=== PATIENT | female | born 2000 | race Caucasian/White ===

== ENCOUNTER 2025-06-29 01:55 | Emergency (ER) | payer SELFPAY ==
[2025-06-29] MEDS ORDERED: NA CHLORIDE 0.9% 1,000 ML ONE (02:15)
[2025-06-29] MEDS ORDERED: ONDANSETRON 4 MG/2 ML VIAL ONE (02:15)
[2025-06-29 03:00] LABS: Absolute Lymphocytes (CBC) 4.5 K/uL (0.7-4.9); Hematocrit 41.2 % (36.0-45.0); Hemoglobin 14.2 g/dL (12.0-15.0); MCH 28.4 pg (27.0-35.0); MCHC 34.4 g/dL (32.0-36.0); MCV 82.6 fL (80-100); MPV 8.4 fL (7.6-11.3); Nucleated RBC Absolute Count 0.0 (0-0); Nucleated Red Blood Cells % 0.0 % (0-0); RBC Red Blood Cell Count 4.99 M/uL (3.86-4.86); White Blood Count 12.80 thou/uL (4.3-10.9)
[2025-06-29 03:05] LABS: ALT/SGPT 41.0 U/L (13-56); AST/SGOT 18.0 U/L (15-37); Albumin 3.7 g/dL (3.4-5.0); Albumin/Globulin Ratio 1.1 (1.1-1.8); Alkaline Phosphatase 82.0 U/L (45-117); Anion Gap 11.4 mEq/L (5.0-15.0); BUN Blood Urea Nitrogen 10.0 mg/dL (7-18); Globulin 3.5 g/dL (2.3-3.5); Glucose Level 97.0 mg/dL (74-106); Lipase 28.0 U/L (13-75); Magnesium 2.1 mg/dL (1.6-2.4); Potassium 3.4 mEq/L (3.5-5.1)
[2025-06-29] MEDS ORDERED: KETOROLAC 30 MG/ML INJ ONE ×2 (03:14→05:27)
[2025-06-29 03:59] LABS: Sqamous Epithelial <5 /HPF (None Seen); Urine Culture Reflex Order NOT NEEDED; Urine Microscopic Reflex YN ORDER UMIC
--- NOTE | 2025-06-29 05:24 | RAD REPORT ---
EXAM DESCRIPTION: Abdomen Pelvis W Contrast CLINICAL HISTORY: ABD PAIN COMPARISON: None TECHNIQUE: Contiguous axial sections of the abdomen and pelvis were obtained with intravenous contrast. This exa m was performed according to our departmental dose-optimization program, which includes automated exposure control, adjustment of the mA and/or kV according to patient size and/or use of iterative re construction technique. FINDINGS: Lower Chest: The imaged lung bases are clear. No pleural or pericardial effusion. Organs: The liver, spleen, gallbladder, pancreas, and adrenal glands are normal. The kidneys are inta ct. GI/Bowel: There are no findings of small bowel obstruction. No acute bowel wall inflammatory changes. The appendix is normal. Pelvis: The bladder is normal. The rectum is normal. Trace amount of the pelvic free fluid. No pelvic lymphadenopathy. Peritoneum/Retroperitoneum: No intraperitoneal free air. No intraperitoneal free fluid. No mesenteric or retroperitoneal lymphadenopathy. Bones/Soft Tissues: There are no suspicious-appearing lytic or blastic osseous lesions. IMPRESSION: No acute intra-abdominal or pelvic abnormality. RECOMMENDATIONS: Electronically signed by: Eleazar Murdock MD 06/29/2025 05:13 AM [facility] Due to temporary technical issues with the PACS/Semetric reporting system, reports are being melissa d by the in-house radiologist without review as a courtesy to ensure prompt reporting the interpreting radiologist is fully responsible for the content of the report. Transcribed Date/Time: 06/29/2025 5:24 AM
--- NOTE | 2025-06-29 05:27 | ER ---
Nurse's Notes [facility] Name: Zeny Perkins Age: 24 yrs Sex: Female : 2000 Arrival Date: 06/29/2025 Time: 01:55 Bed 6 Private MD: Diagnosis: Abdominal pain, unspecified Presentation: 06/29 02:01 Chief complaint: Patient states: left sided abdominal pain with N/V beginning last lg3 night. Coronavirus screen: Client denies travel out of the [place] in the last 14 days. At this time, the client does not indicate any symptoms associated with coronavirus-19. Ebola Screen: No symptoms or risks identified at this time. Initial Sepsis Screen: Does the patient meet any 2 criteria? No. Patient's initial sepsis screen is negative. Does the patient have a suspected source of infection? No. Patient's initial sepsis screen is negative. Risk Assessment: Do you want to hurt yourself or someone else? Patient reports no desire to harm self or others. Onset of symptoms was June 28, 2025. Care prior to arrival: Medication(s) given: zofran 4 mg. 02:01 Method Of Arrival: EMS: [facility] lg3 02:01 Acuity: BÁRBARA 3 lg3 Triage Assessment: 02:03 General: Appears in no apparent distress. uncomfortable, Behavior is calm, cooperative. lg3 Pain: Complains of pain in right upper quadrant and right lower quadrant. EENT: No deficits noted. No signs and/or symptoms were reported regarding the EENT system. Neuro: No deficits noted. Foster Agitation-Sedation Scale (RASS): 0 - Alert and Calm Level of Consciousness is awake, alert, obeys commands, Oriented to person, place, time, situation. Cardiovascular: No deficits noted. Denies chest pain, shortness of breath, Capillary refill < 3 seconds Clubbing of nail beds is absent JVD is absent Patient's skin is warm and dry. Respiratory: No deficits noted. Airway is patent Respiratory effort is even, unlabored, Respiratory pattern is regular, symmetrical. GI: Abdomen is round non-distended, Bowel sounds present X 4 quads. Reports lower abdominal pain, upper abdominal pain, nausea, vomiting. : No signs and/or symptoms were reported regarding the genitourinary system. Derm: No deficits noted. No signs and/or symptoms reported regarding the dermatologic system. Skin is intact, is healthy with good turgor, Skin is dry, Skin is normal, Skin temperature is warm. Musculoskeletal: No deficits noted. No signs and/or symptoms reported regarding the musculoskeletal system. Circulation, motion, and sensation intact. Range of motion: intact in all extremities. 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 - Infectious Disease History:: Denies. - Social history:: Smoking status: Reported history of juuling and/or vaping. Patient/guardian denies using alcohol, street drugs. Screenin:08 [facility] ED Fall Risk Assessment (Adult) History of falling in the last 3 months, lg3 including since admission No falls in past 3 months (0 pts) Confusion or Disorientation No (0 pts) Intoxicated or Sedated No (0 pts) Impaired Gait No (0 pts) Mobility Assist Device Used No (0 pt) Altered Elimination No (0 pt) Score/Fall Risk Level 0 - 2 = Low Risk Oriented to surroundings, Maintained a safe environment, Educated pt \T\ family on fall prevention, incl call for assistance when getting out of bed, Assessed \T\ reinforced patient's understanding of fall precautions. Abuse screen: Denies threats or abuse. Denies injuries from another. Nutritional screening: No deficits noted. Tuberculosis screening: No symptoms or risk factors identified. Assessment: 02:08 General: see triage assessment. GI: Abd is soft and non tender X 4 quads. lg3 03:10 Reassessment: Patient appears in no apparent distress at this time. No changes from lg3 previously documented assessment. Patient and/or family updated on plan of care and expected duration. Pain level reassessed. Patient is alert, oriented x 3, equal unlabored respirations, skin warm/dry/pink. 04:57 Reassessment: Patient appears in no apparent distress at this time. No changes from lg3 previously documented assessment. Patient and/or family updated on plan of care and expected duration. Pain level reassessed. Patient is alert, oriented x 3, equal unlabored respirations, skin warm/dry/pink. 05:38 Reassessment: Patient appears in no apparent distress at this time. No changes from lg3 previously documented assessment. Patient and/or family updated on plan of care and expected duration. Pain level reassessed. Patient is alert, oriented x 3, equal unlabored respirations, skin warm/dry/pink. Patient states feeling better. Patient states symptoms have improved. Vital Signs: 02:01 BP 127 / 86; Pulse 74; Resp 17 S; Temp 98.1(O); Pulse Ox 100% on R/A; Weight 99.79 kg lg3 (R); Height 5 ft. 8 in. (R); Pain 5/10; 03:10 BP 125 / 89; Pulse 71; Resp 16 S; Pulse Ox 100% on R/A; lg3 04:56 BP 115 / 69; Pulse 66; Resp 17 S; Pulse Ox 100% on R/A; lg3 05:39 BP 117 / 72; Pulse 69; Resp 16 S; Pulse Ox 100% on R/A; lg3 02:01 Body Mass Index 33.45 (99.79 kg, 172.72 cm) lg3 02:01 Pain Scale: Adult lg3 ED Course: 01:59 Patient arrived in ED. rv1 02:00 Patricia Cunningham RN is Primary Nurse. lg3 02:00 Michael Wright PA-C is PHCP. cp 02:00 Michael Malloy MD is Attending Physician. cp 02:03 Triage completed. lg3 02:03 Arm band placed on right wrist. lg3 02:08 Patient has correct armband on for positive identification. Placed in gown. Bed in low lg3 position. Call light in reach. Side rails up X 1. Client placed on continuous cardiac and pulse oximetry monitoring. NIBP monitoring applied. Door closed. Noise minimized. Warm blanket given. Pillow given. 02:08 Initial lab(s) drawn, by ED staff, sent to lab. Maintain EMS IV. Dressing intact. Good lg3 blood return noted. Site clean \T\ dry. Gauge \T\ site: 22 LAC. Flushed with 10 mL NS. 02:23 Inserted saline lock: 20 gauge in right antecubital area, using aseptic technique. lg3 03:09 Magnesium Sent. lg3 03:36 CT Abd/Pelvis - IV Contrast Only In Process Unspecified. EDMS 05:25 Dione Colindres MD is Referral Physician. cp 05:39 No provider procedures requiring assistance completed. IV discontinued, intact, lg3 bleeding controlled, No redness/swelling at site. Pressure dressing applied. Administered Medications: 02:15 CANCELLED (Physician Discretion): morphineor iv 4 mg IVP once over 4 mins cp 02:23 Drug: Ondansetron IVP 4 mg IVP once; over 2 minutes Route: IVP; Site: left antecubital; lg3 03:09 Follow up: Response: No adverse reaction; Marked relief of symptoms lg3 02:23 Drug: NS 0.9% IV 1000 ml IV at 1 bolus Per protocol; to be given as a bolus over 60 lg3 minutes Route: IV; Rate: 1 bolus; Site: left antecubital; 03:09 Follow up: Response: No adverse reaction; IV Status: Completed infusion; IV Intake: lg3 1000ml 03:17 Drug: Ketorolac IVP 15 mg IVP once Route: IVP; Site: left antecubital; lg3 05:38 Follow up: Response: No adverse reaction lg3 05:38 Drug: Ketorolac IVP 15 mg IVP once Route: IVP; Site: left antecubital; lg3 05:40 Follow up: Response: No adverse reaction; Medication administered at discharge. lg3 Medication: 02:08 VIS not applicable for this client. lg3 Intake: 03:09 IV: 1000ml; Total: 1000ml. lg3 Outcome: 05:26 Discharge ordered by . cp 05:39 Discharged to home ambulatory, with family, lg3 05:39 Condition: stable 05:39 Discharge instructions given to patient, Instructed on discharge instructions, follow up and referral plans. medication usage, Demonstrated understanding of instructions, follow-up care, medications, Prescriptions given X 2, 05:47 Patient left the ED. lg3 Signatures: Dispatcher [facility] Michael Wright PA-C PA-C Patricia Macedo, RN RN lg3 Trevino, Maryjane rv1
--- NOTE | 2025-06-29 05:27 | EDPHYS ---
Physician Documentation [facility] Name: Zeny Perkins Age: 24 yrs Sex: Female : 2000 Arrival Date: 06/29/2025 Time: 01:55 Bed 6 Private MD: ED Physician Michael Malloy HPI: 06/29 02:07 This 24 yrs old Female presents to ER via EMS with complaints of Abdominal Pain, cp Nausea/Vomiting. 02:07 The patient presents with abdominal pain in the upper abdomen, mid abdomen. Onset: The cp symptoms/episode began/occurred today. The symptoms radiate to left back. Associated signs and symptoms: Pertinent positives: nausea, Pertinent negatives: diarrhea, dysuria, fever, vaginal spotting. 02:10 Patient reports vaginal spotting/bleeding after intercourse. 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 - Infectious Disease History:: Denies. - Social history:: Smoking status: Reported history of juuling and/or vaping. Patient/guardian denies using alcohol, street drugs. ROS: 02:10 Constitutional: Negative for body aches, chills, fever, poor PO intake, cp 02:10 Respiratory: Negative for cough, shortness of breath, wheezing, cp 02:10 Abdomen/GI: Positive for abdominal pain, nausea, of the mid and upper abdomen, Negative for vomiting, diarrhea, constipation, 02:10 Eyes: Negative for injury, pain, redness, and discharge, cp 02:10 ENT: Negative for drainage from ear(s), ear pain, sore throat, difficulty swallowing, cp difficulty handling secretions, 02:10 Cardiovascular: Negative for chest pain, palpitations, 02:10 Neuro: Negative for altered mental status, headache, syncope, weakness, 02:10 All other systems are negative, Exam: 02:15 Constitutional: The patient appears in no acute distress, alert, awake, non-toxic, well cp developed, well nourished, uncomfortable, 02:15 Head/Face: Normocephalic, atraumatic. cp 02:15 Eyes: Periorbital structures: appear normal, Conjunctiva: normal, no exudate, no injection, Sclera: no appreciated abnormality, Lids and lashes: appear normal, bilaterally, 02:15 ENT: External ear(s): are unremarkable, Nose: is normal, Mouth: Lips: moist, Oral mucosa: moist, Posterior pharynx: Airway: no evidence of obstruction, patent, 02:15 Neck: ROM/movement: is normal, is supple, without pain, no range of motions limitations, 02:15 Chest/axilla: Inspection: normal, 02:15 Cardiovascular: Rate: normal, Rhythm: regular, 02:15 Respiratory: the patient does not display signs of respiratory distress, Respirations: normal, no use of accessory muscles, no retractions, labored breathing, is not present, Breath sounds: are clear throughout, decreased breath sounds, are not appreciated, stridor, is not appreciated, wheezing: is not appreciated, 02:15 Abdomen/GI: Inspection: abdomen appears normal, Bowel sounds: active, all quadrants, cp Palpation: soft, in all quadrants, moderate abdominal tenderness, in the right upper quadrant and left upper quadrant, involuntary guarding, is not appreciated, 02:15 Back: CVA tenderness, is absent, cp 05:25 : Pelvic Exam: The exam is refused by the patient/guardian. The risks and cp consequences are understood by the patient, Sexual behavior: the patient is sexually active, and reports a single partner, Vital Signs: 02:01 BP 127 / 86; Pulse 74; Resp 17 S; Temp 98.1(O); Pulse Ox 100% on R/A; Weight 99.79 kg lg3 (R); Height 5 ft. 8 in. (R); Pain 5/10; 03:10 BP 125 / 89; Pulse 71; Resp 16 S; Pulse Ox 100% on R/A; lg3 04:56 BP 115 / 69; Pulse 66; Resp 17 S; Pulse Ox 100% on R/A; lg3 05:39 BP 117 / 72; Pulse 69; Resp 16 S; Pulse Ox 100% on R/A; lg3 02:01 Body Mass Index 33.45 (99.79 kg, 172.72 cm) lg3 02:01 Pain Scale: Adult lg3 MDM: 02:59 Medical Screening Exam initiated geovanny 05:24 Data reviewed: vital signs, nurses notes, lab test result(s), radiologic studies, CT cp scan, and as a result, I will discharge patient. 06/29 02:05 Order name: CBC with Diff; Complete Time: 03:05 cp 06/29 03:05 Interpretation: Normal except: WBC 12.80; RBC 4.99. cp 06/29 02:05 Order name: CMP; Complete Time: 03:53 cp 06/29 03:53 Interpretation: Normal except: K 3.4; CL 108. cp 06/29 02:05 Order name: Lipase; Complete Time: 03:53 cp 06/29 02:10 Order name: Test, Serum; Complete Time: 02:59 lg3 06/29 02:56 Order name: Magnesium cp 06/29 03:00 Order name: Magnesium; Complete Time: 03:53 EDMS 06/29 03:18 Order name: UA Rfx Willie Cult if indicated; Complete Time: 05:20 lg3 06/29 05:20 Interpretation: Reviewed. cp 06/29 02:05 Order name: CT Abd/Pelvis - IV Contrast Only cp 06/29 02:05 Order name: IV Saline Lock; Complete Time: 02:23 cp 06/29 02:05 Order name: Labs collected and sent; Complete Time: 02:23 cp Administered Medications: 02:15 CANCELLED (Physician Discretion): morphineor iv 4 mg IVP once over 4 mins cp 02:23 Drug: Ondansetron IVP 4 mg IVP once; over 2 minutes Route: IVP; Site: left antecubital; lg3 03:09 Follow up: Response: No adverse reaction; Marked relief of symptoms lg3 02:23 Drug: NS 0.9% IV 1000 ml IV at 1 bolus Per protocol; to be given as a bolus over 60 lg3 minutes Route: IV; Rate: 1 bolus; Site: left antecubital; 03:09 Follow up: Response: No adverse reaction; IV Status: Completed infusion; IV Intake: lg3 1000ml 03:17 Drug: Ketorolac IVP 15 mg IVP once Route: IVP; Site: left antecubital; lg3 05:38 Follow up: Response: No adverse reaction lg3 05:38 Drug: Ketorolac IVP 15 mg IVP once Route: IVP; Site: left antecubital; lg3 05:40 Follow up: Response: No adverse reaction; Medication administered at discharge. lg3 Disposition: 13:33 Co-signature as Attending Physician, Michael Malloy MD I agree with the assessment and geovanny plan of care. Disposition Summary: 06/29/25 05:26 Discharge Ordered Notes: Location: Home cp Problem: new cp Symptoms: have improved cp Condition: Stable cp Diagnosis - Abdominal pain, unspecified cp Followup: cp - With: Dione Colindres MD - When: 2 - 3 days - Reason: Recheck today's complaints Discharge Instructions: - Discharge Summary Sheet cp - Abdominal Pain, Adult cp - Nausea, Adult cp Forms: - Medication Reconciliation Form cp - Antibiotic Education cp - Prescription Opioid Use cp - Patient Portal Instructions cp - Leadership Thank You Letter cp Prescriptions: - Diclofenac Sodium 75 mg Oral tablet, delayed release (enteric coated) - take 1 tablet ORAL route 2 times per day; 20 tablet; Refills: 0, Product cp Selection Permitted - ondansetron 8 mg Oral Tablet,disintegrating - take 1 tablet ORAL route every 12 hours; 15 tablet; Refills: 0, Product cp Selection Permitted Signatures: Dispatcher [employer] Michael Henson MD MD cha Page, Corey, PA-C PA-C Patricia Macedo RN RN lg3 Corrections: (The following items were deleted from the chart) 02:05 02:05 CBC+H.LAB.BRZ ordered. EDMS EDMS 02:05 02:05 COMPREHENSIVE METABOLIC PANEL+C.LAB.BRZ ordered. EDMS EDMS 02:05 02:05 LIPASE+C.LAB.BRZ ordered. EDMS EDMS 02:15 02:05 morphine IVP or IV 4 mg IVP once over 4 mins ordered. cp cp 02:29 02:05 Test, Urine+UC.LAB.BRZ ordered. EDMS EDMS 03:18 03:18 UA Rfx Willie Cult if indicated+U.LAB.BRZ ordered. EDMS EDMS
[2025-06-29 09:20] VITALS: TEMP 98.1; O2SAT 100
[2025-06-29 09:36] VITALS: BP 117/72
== END 2025-06-29 05:47 | disposition home or self-care (01) ==
LOC: ER 01:55
DX: R10.12 Left upper quadrant pain (principal); R10.11 Right upper quadrant pain; R11.0 Nausea
CPT/HCPCS: 36415; 74177; 80053; 81001; 83690; 83735; 84703; 85025; J2405; J7030; Q9967